=== PATIENT | female | born 1985 | race Caucasian/White ===

== ENCOUNTER 2022-03-09 15:29 | Emergency (ER) | payer MEDICAID ==
[~2022-03-09] VITALS: Ht 160 cm; Wt 98.0 kg
[2022-03-09 15:33] VITALS: BP 128/75
--- NOTE | 2022-03-09 15:56 | NUR ---
36 y/o female, c/o lower right leg pain 10/10 with nausea, new onset last night. denies injury or trauma to area. upon assesment, pt has redness and swelling to ankle area. 19 weeks estimated . skin is pink/warm/dry. a&o x4 with even and steady gait. pt denies any fever, cp, sob, or cough at this time. patient positioned for comfort. hob elevated. bed down. ermd made aware of pt. pmh: denies nka med: denies
[2022-03-09] MEDS ORDERED: ACET-10509 PO (17:53)
[2022-03-09] MEDS ORDERED: CEPH-588 PO (17:53)
[2022-03-09 18:00] VITALS: BP 103/69
--- NOTE | 2022-03-09 18:00 | NUR ---
Patient discharged with v/s stable. Written and verbal after care instructions about Cellulitis given and explained. Patient alert, oriented and verbalized understanding of instructions. Ambulatory with steady gait. All questions addressed prior to discharge. ID band removed. Patient advised to follow up with PMD. Rx of TYLENOL AND KEFLEX given. Patient educated on indication of medication including possible reaction and side effects. Opportunity to ask questions provided and answered.
== END 2022-03-09 18:00 | disposition home or self-care (01) ==
LOC: MED 15:29
DX: O21.8 Other vomiting complicating pregnancy (principal); O26.892 Other specified pregnancy related conditions, second trimester; M79.604 Pain in right leg; Z3A.21 21 weeks gestation of pregnancy; Z79.899 Other long term (current) drug therapy
CPT/HCPCS: 99283

== ENCOUNTER 2022-06-12 06:25 | Inpatient (IN) | payer OTHER ==
[~2022-06-12] VITALS: Ht 157.5 cm; Wt 122.5 kg
[~2022-06-12 06:25] MED LIST: ACET-10509 PO; CEPH-588 PO
[2022-06-12] MEDS ORDERED: LACTATED RINGERS 1,000 ML IV SCH (07:20)
[2022-06-12 08:18] LABS: PROTHROMBIN TIME 9.7 secs (10.8-13.4)
[2022-06-12 08:31] LABS: BASOPHILS % (AUTO) 0.2 % (0.0-2.0); EOSINOPHILS # (AUTO) 0.1 K/uL (0-0.4); EOSINOPHILS % (AUTO) 1.1 % (0.0-4.0); HEMATOCRIT 33.5 % (36-48); HEMOGLOBIN 11.3 g/dL (12.0-16.0); LYMPHOCYTES # (AUTO) 1.8 K/uL (2.5-16.5); LYMPHOCYTES % (AUTO) 15.1 % (20.5-51.1); MEAN CORPUSCULAR HEMOGLOBIN 28 pg (27-31); MEAN CORPUSCULAR HGB CONC 34 g/dL (33-37); MEAN CORPUSCULAR VOLUME 83.6 fL (80-94); MONOCYTES # (AUTO) 0.8 K/uL (0.8-1.0); MONOCYTES % (AUTO) 6.8 % (1.7-9.3); NEUTROPHILS # (AUTO) 8.9 K/uL (1.8-7.7); NEUTROPHILS % (AUTO) 76.8 % (42.2-75.2); PLATELET COUNT (AUTO) 178 K/uL (140-450); RED BLOOD CELL COUNT(AUTO) 4.01 MIL/uL (4.20-5.40); WHITE BLOOD COUNT (AUTO) 11.6 K/uL (4.8-10.8)
--- NOTE | 2022-06-12 09:11 | NUR ---
PATIENT HAS BEEN SCREENED AND CATEGORIZED LOW NUTRITION RISK. PATIENT WILL BE SEEN WITHIN 7 DAYS OF ADMISSION. 06/19/22 REVIEWED BY [address]
[2022-06-12 09:26] LABS: ALBUMIN 2.9 g/dL (3.4-5.0); ANION GAP 12.9 (8-16); CARBON DIOXIDE 23.8 mmol/L (21-32); CREATININE 0.5 mg/dL (0.6-1.3); POTASSIUM 3.7 mmol/L (3.5-5.1); TOTAL BILIRUBIN 0.4 mg/dL (0.0-1.0)
[2022-06-12 09:57] LABS: APPEARANCE,URINE CLEAR (CLEAR); BILIRUBIN,URINE NEGATIVE (NEGATIVE); BLOOD, URINE 2+ (NEGATIVE); COLOR,URINE YELLOW (YELLOW); LEUKOCYTE ESTERASE ,URINE TRACE (NEGATIVE); NITRITE, URINE NEGATIVE (NEGATIVE); UGLUCOSE NEGATIVE (NEGATIVE)
[2022-06-12 10:06] LABS: BARBITURATE, URINE NEGATIVE ng/ml (NEG <=200); BENZODIAZEPINE, URINE NEGATIVE ng/mL (NEG <=200); CANNABINOID, URINE NEGATIVE ng/mL (NEG <=50); COCAINE, URINE NEGATIVE ng/mL (NEG <=300); OPIATE, URINE NEGATIVE ng/mL (NEG <=2000); PHENCYCLIDINE SCREEN,URINE NEGATIVE ng/mL (NEG <=25)
[2022-06-12 10:10] LABS: RBC,URINE 11-20 (MOD) /HPF (0-5)
[2022-06-12] MEDS ORDERED: PREN-537 PO (11:01)
[2022-06-12] MEDS ORDERED: ONDANSETRON 4 MG/2 ML VIAL ONE (16:00)
[2022-06-12] MEDS ORDERED: KETOROLAC 30 MG/ML VIAL ONE (16:00)
[2022-06-12] MEDS ORDERED: OXYTOCIN 10 UNITS/ML VIAL ONE (16:00)
[2022-06-12] MEDS ORDERED: ceFAZolin 2,000 MG VIAL ONE (16:00)
[2022-06-12] MEDS ORDERED: MORPHINE PRES FREE 10 MG/10 ML AMP IV ONE (16:04)
[2022-06-12] MEDS ORDERED: OXYTOCIN 20 UNITS/LR PREMIX 1,000 ML IV ONE (16:17)
[2022-06-12] MEDS ORDERED: NALOXONE 0.4 MG/ML VIAL IVP PRN ×3 (17:00)
[2022-06-12] MEDS ORDERED: ONDANSETRON 4 MG/2 ML VIAL IVP PRN (17:00)
[2022-06-12] MEDS ORDERED: NALBUPHINE 10 MG/ML AMP IVP PRN (17:00)
[2022-06-12] MEDS ORDERED: METOCLOPRAMIDE 10 MG/2 ML INJ VIAL IVP PRN (17:00)
[2022-06-12] MEDS ORDERED: diphenhydrAMINE 50 MG/ML VIAL IVP PRN (17:00)
[2022-06-12] MEDS ORDERED: MEASLES, MUMPS, AND RUBELLA 1 VIAL SQVAC ONE (20:45)
[2022-06-12] MEDS ORDERED: METHYLERGONOVINE 0.2 MG/ML AMP IM PRN (20:45)
[2022-06-12] MEDS ORDERED: oxyCODONE/APAP 5/325 MG 1 TAB TAB PO PRN (20:45)
[2022-06-12] MEDS ORDERED: SIMETHICONE 80 MG TAB.CHEW PO PRN (21:20)
[2022-06-13] MEDS: KETOROLAC 30 MG/ML VIAL IM/IVP SCH ×3 (00:20→12:06)
[2022-06-13] MEDS ORDERED: OXYTOCIN 20 UNITS/LR PREMIX 1,000 ML IV ONE (03:24)
[2022-06-13] MEDS: OXYTOCIN 20 UNITS in LACTATED RINGERS 1,000 ML IV SCH ×2 (03:29→12:08)
[2022-06-13] MEDS ORDERED: IBUPROFEN 800 MG TAB PO SCH (08:00)
[2022-06-13 08:42] LABS: BASOPHILS % (AUTO) 0.2 % (0.0-2.0); EOSINOPHILS # (AUTO) 0.1 K/uL (0-0.4); EOSINOPHILS % (AUTO) 0.6 % (0.0-4.0); HEMOGLOBIN 9.7 g/dL (12.0-16.0); LYMPHOCYTES % (AUTO) 8.9 % (20.5-51.1); MEAN CORPUSCULAR HEMOGLOBIN 29 pg (27-31); MEAN CORPUSCULAR HGB CONC 35 g/dL (33-37); MEAN CORPUSCULAR VOLUME 83.4 fL (80-94); MONOCYTES # (AUTO) 0.9 K/uL (0.8-1.0); MONOCYTES % (AUTO) 8.2 % (1.7-9.3); NEUTROPHILS # (AUTO) 9.2 K/uL (1.8-7.7); NEUTROPHILS % (AUTO) 82.1 % (42.2-75.2); PLATELET COUNT (AUTO) 141 K/uL (140-450); RED BLOOD CELL COUNT(AUTO) 3.35 MIL/uL (4.20-5.40); WHITE BLOOD COUNT (AUTO) 11.2 K/uL (4.8-10.8)
[2022-06-13] MEDS ORDERED: bisacodyL 10 MG SUPP RC SCH (09:00)
[2022-06-13] MEDS: oxyCODONE/APAP 5/325 MG 1 TAB TAB PO PRN (17:57)
[2022-06-13] MEDS ORDERED: IBUPROFEN 800 MG TAB PO PRN (21:45)
[2022-06-14] MEDS: oxyCODONE/APAP 5/325 MG 1 TAB TAB PO PRN (11:15)
--- NOTE | 2022-06-15 11:03 | NUR ---
RECEIVED SS ORDER, HOWEVER, PT DC'D ON 06/14 UPON SW RETURN ON 06/15.
== END 2022-06-14 14:50 | disposition home or self-care (01) | DRG 540 ==
LOC: MLD 06:25 → MFCC 17:03
PROVIDERS: ADMIT Obstetrics & Gynecology; ATTEND Obstetrics & Gynecology
PROC: 10D00Z1 Extraction of Products of Conception, Low, Open Approach (ICD-10-PCS; principal; 2022-06-14)
PROC: 3E0234Z Introduction of Serum, Toxoid and Vaccine into Muscle, Percutaneous Approach (ICD-10-PCS; 2022-06-14)
DX: O48.0 Post-term pregnancy (principal); R71.0 Precipitous drop in hematocrit; O99.02 Anemia complicating childbirth; O34.211 Maternal care for low transverse scar from previous cesarean delivery; D72.829 Elevated white blood cell count, unspecified; Z3A.40 40 weeks gestation of pregnancy; Z37.0 Single live birth; Z20.822 Contact with and (suspected) exposure to COVID-19
CPT/HCPCS: 36415; 51702; 80053; 80305; 81001; 85025; 85610; 85730; 86592; 86762; 86886; 86900; 86901; 87086; 87340; 87653-90; J0690; J1200; J1885; J2270; J2405; J2590; J7060; J7120